=== PATIENT | female | born 1970 | race Caucasian/White ===

== ENCOUNTER 2022-10-05 10:36 | Emergency (ER) | payer OTHER ==
[2022-10-05 11:34] LABS: BASOPHILS # (AUTO) 0.1 10^3/uL (0.0-0.1); BASOPHILS % (AUTO) 0.6 %; EOSINOPHILS # (AUTO) 0.2 10^3/uL (0.0-0.7); EOSINOPHILS % (AUTO) 1.7 %; HCT - HEMATOCRIT 47.4 % (37.0-47.0); HGB - HEMOGLOBIN 14.9 g/dL (12.0-16.0); LYMPHOCYTES # (AUTO) 2.9 10^3/uL (1.5-3.5); LYMPHOCYTES % (AUTO) 29.5 %; MEAN CORPUSCULAR HEMOGLOBIN 29.7 pg (27.0-31.0); MEAN CORPUSCULAR HGB CONC 31.4 g/dL (32.0-36.0); MEAN CORPUSCULAR VOLUME 94.4 fL (81.0-99.0); MEAN PLATELET VOLUME 12.9 fL (7.9-10.8); MONOCYTES # (AUTO) 0.6 10^3/uL (0.0-1.0); MONOCYTES % (AUTO) 6.3 %; NEUTROPHILS % (AUTO) 61.4 %; PLT - PLATELET COUNT 163 10^3/uL (130-450); RED BLOOD COUNT 5.02 10^6/uL (4.20-5.40); RED CELL DISTRIBUTION WIDTH 13.8 % (12.0-15.0); WHITE BLOOD COUNT 9.8 x10^3/uL (4.8-10.8)
[2022-10-05 11:54] LABS: ALBUMIN 3.8 g/dL (3.2-5.5); ALBUMIN/GLOBULIN RATIO 1.3 (1.0-2.2); BILIRUBIN,TOTAL 1.4 mg/dL (0.2-1.0); CALCIUM 8.8 mg/dL (8.5-10.3); CREATININE 0.8 mg/dL (0.4-1.0); POTASSIUM 4.3 mmol/L (3.5-5.0); TOTAL PROTEIN 6.8 g/dL (6.7-8.2)
--- NOTE | 2022-10-05 11:57 | XRAY Report ---
PROCEDURE: Chest 1 View X-Ray INDICATIONS: Chest pain TECHNIQUE: One view of the chest was acquired. COMPARISON: None. FINDINGS: Surgical changes and devices: None. Lungs and pleura: No pleural effusions or pneumothorax. Lungs are clear. Mediastinum: Mediastinal contours appear normal. Heart size is enlarged. Bones and chest wall: No suspicious bony lesions. Overlying soft tissues appear unremarkable. IMPRESSION: No acute pulmonary process. Reviewed by: Nanci Rondon MD on 10/05/2022 11:56 AM [facility] Approved by: Nanci Rondon MD on 10/05/2022 11:56 AM [facility] Station ID: [id number]
--- NOTE | 2022-10-05 12:09 | ED Physician Documentation ---
History of Present Illness - Stated complaint Stated Complaint: SOA/CHEST PX - Chief complaint Chief Complaint: Cardiac - Additonal information Additional information: History obtained from patient. Reliable historian. 52-year-old female presents emergency department for evaluation of intermittent chest discomfort/pressure and palpitations. They began a number of weeks ago though got exceedingly worse yesterday evening about 7 PM. Patient is visiting the [place] as her osstuj-hv-qmq recently . + orthopnea. No unilateral leg swelling. She is obese but denies a history of hypertension or coronary artery disease. She takes Prozac only. No smoker. She was a heavy alcohol user but quit about 1 month ago. She is unsure of her return date to [place]. Review of Systems Constitutional: reports: Reviewed and negative Nose: reports: Reviewed and negative Throat: reports: Reviewed and negative Cardiac: reports: Chest pain / pressure, Palpitations. denies: Pedal edema, Calf pain Respiratory: reports: Dyspnea (orhtopnea). denies: Cough GI: reports: Abdominal Pain. denies: Nausea, Vomiting : reports: Reviewed and negative Skin: reports: Reviewed and negative PD PAST MEDICAL HISTORY - Present Medications Home Medications: Ambulatory Orders Medication Instructions Recorded Confirmed Fluoxetine HCl [Prozac] 20 mg PO DAILY 10/05/22 10/05/22 dilTIAZem HCL [Cardizem] 30 mg PO QID #120 tab 10/05/22 - Allergies Allergies/Adverse Reactions: Allergies Allergy/AdvReac Type Severity Reaction Status Date / Time No Known Drug Allergies Allergy Verified 10/05/22 11:18 PD ED PE NORMAL - General General: Alert and oriented X 3, No acute distress. No: Well developed/nourished (obese) - HEENT HEENT: PERRL - Cardiac Cardiac: No murmur. No: RRR (Irregularly irregular. A. 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 Eye Opening: Spontaneous Motor: Obeys Commands Verbal: Oriented GCS Score: 15 Results - Vitals Vitals: Vital Signs - 24 hr 10/05/22 10/05/2210/05/23 11:08 12:23 12:33 Temperature 36.6 C Heart Rate 142 H 131 H 122 H Respiratory 20 22 16 Rate Blood Pressure 107/79 127/95 H 101/68 O2 Saturation 100 98 99 Oxygen O2 Source Room air - EKG (time done) 1116 Rate: Rate (enter#) (142) Rhythm: Atrial fibrillation [place]: Anterior hemiblock Intervals: No: Normal ID, Prolonged QT QRS: Normal Ischemia: Non specific changes Compare to prior EKG: Old EKG unavailable Computer interpretation: Agree with computer - Labs Labs: Laboratory Tests 10/05/22 10/05/22 10/05/22 11:28 11:28 11:28 WBC 9.8 RBC 5.02 Hgb 14.9 Hct 47.4 H MCV 94.4 MCH 29.7 MCHC 31.4 L RDW 13.8 Plt Count 163 MPV 12.9 H Neut # (Auto) 6.0 Lymph # (Auto) 2.9 [place] # (Auto) 0.6 Eos # (Auto) 0.2 Baso # (Auto) 0.1 Absolute Nucleated RBC 0.00 Nucleated RBC % 0.0 Sodium 139 Potassium 4.3 Chloride 108 Carbon Dioxide 20 L Anion Gap 11.0 BUN 18 Creatinine 0.8 Estimated GFR (MDRD) 76 L Glucose 118 H Calcium 8.8 Total Bilirubin 1.4 H AST 20 ALT 20 Alkaline Phosphatase 75 Troponin I High Sens 11.5 B-Natriuretic Peptide Total Protein 6.8 Albumin 3.8 Globulin 3.0 Albumin/Globulin Ratio 1.3 Lipase 26 10/05/22 11:28 WBC RBC Hgb Hct MCV MCH MCHC RDW Plt Count MPV Neut # (Auto) Lymph # (Auto) [place] # (Auto) Eos # (Auto) Baso # (Auto) Absolute Nucleated RBC Nucleated RBC % Sodium Potassium Chloride Carbon Dioxide Anion Gap BUN Creatinine Estimated GFR (MDRD) Glucose Calcium Total Bilirubin AST ALT Alkaline Phosphatase Troponin I High Sens B-Natriuretic Peptide 676 H Total Protein Albumin Globulin Albumin/Globulin Ratio Lipase - Rads (name of study) cxr Radiology: Final report received (No acute cardiopulmonary process) PD Medical Decision Making - ED course Complexity details: reviewed results, re-evaluated patient, considered differential, d/w patient ED course: 52-year-old female presents emergency department for evaluation of intermittent palpitations over the last few weeks that became acutely worse and persistent yesterday evening about 7 PM. On presentation to the emergency department she is noted to be in atrial fib wit h RVR heart rate of 140 though normotensive. She is alert and otherwise well- appearing. She has no focal deficits neurologically. Once IV access was established she was given a dose of Cardizem which slowed her heart rate into the 120s but remained atrial fibrillation. A second 10 mg dose of Cardizem was also then administered which successfully slowed her heart rate into the 90s. She remained there for the better part of an hour. She was also given an oral dose of Cardizem prior to discharge as well as a loading dose of aspirin 325. I did check her chest x-ray and showed no findings of volume overload congestive heart failure or focal pneumonia/infiltrate or pleural effusion. CBC and electrolytes were otherwise unrevealing. According to her [id number] 2 score she is low risk for stroke/TIA earning a score of 1 only for her gender. Thus she will be discharged home with oral Cardizem for rate control initially 30 mg 4 times daily. She is encouraged to follow very closely with her primary care provider when she returns to the [facility] as she will need an urgent/emergent referral to cardiology. Emergent and urgent return precautions were discussed otherwise Departure - Departure Disposition: 01 Home, Self Care Clinical Impression: Atrial fibrillation Qualifiers: Atrial fibrillation type: unspecified Qualified Code(s): I48.91 - Unspecified atrial fibrillation Condition: Serious Record reviewed to determine appropriate education?: Yes Instructions: Atrial Fibrillation Dc Prescriptions: dilTIAZem HCL [Cardizem] 30 mg PO QID #120 tab Comments: Bethanie you came to the emergency department today because intermittently for a few weeks you have been having some shortness of air and palpitations. You were found to be in a heart rhythm called atrial fibrillation. This is erratic electrical ask activity in the upper chambers of the heart. This can cause you to have increased risk of stroke as well as developed heart failure if your rate is not controlled over time. Here in the emergency department your CBC, electrolytes and chest x-ray did not show any worrisome findings. We did give you 2 doses of medication called Cardizem which has slowed your heart rate to the 90s and low 110s which is appropriate at this time for discharge. In order to manage her rate over the next few days or week until you see your primary care doctor I would like you to take the Cardizem 4 times a day. It is important/critical that you follow closely with your primary care doctor because you should receive a referral to a cottrell blower for longer-term management and evaluation of your atrial fibrillation. We did give you a dose of aspirin today in the emergency department and I recommend that you begin taking an 81 mg aspirin daily. We did discuss that with atrial fibrillation you do have about a 1% risk of stroke over the next year. However this is considered lower risk and the recommendation would be not to start therapeutic anticoagulation Due to the risks associated with anticoagulation and bleeding. If you find that despite taking the Cardizem you are having a racing heart, have any fainting episodes develop chest pain or severe shortness of air you need to return immediately to the ER. Return sooner for any signs of stroke such as slurred speech, facial droop, focal weakness in the arms or legs. .
[2022-10-05] MEDS: diltiaZEM INJ 5 MG/ML VIAL IVP STA ×2 (12:25→12:44)
[2022-10-05] MEDS: ASPIRIN CHEW 81 MG TABLET PO STA (14:00)
[2022-10-05] MEDS: diltiaZEM 30 MG TABLET PO STA (14:01)
[2022-10-05 14:20] VITALS: BP 144/116
== END 2022-10-05 14:20 | disposition home or self-care (01) ==
LOC: ED 10:36
DX: I48.91 Unspecified atrial fibrillation (principal)
CPT/HCPCS: 36415; 71045; 80053; 83690; 83880; 84484; 85025; 93005; 96374; 99284; A9270

== ENCOUNTER 2023-11-27 11:53 | Emergency (ER) | payer SELFPAY ==
[2023-11-27 12:27] LABS: BASOPHILS # (AUTO) 0.1 10^3/uL (0.0-0.1); BASOPHILS % (AUTO) 0.9 %; EOSINOPHILS # (AUTO) 0.2 10^3/uL (0.0-0.7); EOSINOPHILS % (AUTO) 2.9 %; HGB - HEMOGLOBIN 12.4 g/dL (12.0-16.0); LYMPHOCYTES # (AUTO) 1.6 10^3/uL (1.5-3.5); LYMPHOCYTES % (AUTO) 23.6 %; MEAN CORPUSCULAR HGB CONC 29.5 g/dL (32.0-36.0); MEAN CORPUSCULAR VOLUME 94.8 fL (81.0-99.0); MEAN PLATELET VOLUME 12.8 fL (7.9-10.8); MONOCYTES # (AUTO) 0.6 10^3/uL (0.0-1.0); MONOCYTES % (AUTO) 9.4 %; NEUTROPHILS # (AUTO) 4.3 10^3/uL (1.5-6.6); NEUTROPHILS % (AUTO) 62.9 %; PLT - PLATELET COUNT 192 10^3/uL (130-450); RED BLOOD COUNT 4.43 10^6/uL (4.20-5.40); RED CELL DISTRIBUTION WIDTH 18.3 % (12.0-15.0); WHITE BLOOD COUNT 6.8 x10^3/uL (4.8-10.8)
--- NOTE | 2023-11-27 12:27 | ED Physician Documentation ---
History of Present Illness - Stated complaint Stated Complaint: SOB,LEG WOUND - Chief complaint Chief Complaint: Cardiac - History obtained from History obtained from: Patient - Additonal information Additional information: She has a history of A-fib but was lost to follow-up. Never seen a supervisor treating and pumping, never had an echo. She is in the process of moving up here and was on meds for rate control, but was lost to follow-up and has been off of meds for several months. She presents with progressive dyspnea, orthopnea, mild chest tightness but no chest pain per se. She also bumped her left sharpe on something 2 weeks ago when she developed a sore there that probably became infected last night. Denies fevers or chills. 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: Hysterectomy - Present Medications Home Medications: Ambulatory Orders Medication Instructions Recorded Confirmed Fluoxetine HCl [Prozac] 20 mg PO DAILY 10/05/22 11/27/23 Diltiazem HCl [Diltiazem 12Hr ER] 60 mg PO BID #60 cap 11/27/23 Furosemide [Lasix] 20 mg PO DAILY #7 tablet 11/27/23 HYDROcod/ACETAM 5/325 [[place] 5/325] 1 - 2 tab PO Q6H PRN #15 tablet 11/27/23 Mupirocin 2% Oint [Bactroban 2% 1 applic TOP BID #50 gm 11/27/23 Oint] Omeprazole Magnesium [Prilosec] 20 mg PO DAILY 11/27/23 11/27/23 Potassium Chloride 10 meq PO DAILY #7 tab 11/27/23 cephALEXin [Keflex] 500 mg PO Q6H #28 cap 11/27/23 - Allergies Allergies/Adverse Reactions: Allergies Allergy/AdvReac Type Severity Reaction Status Date / Time No Known Drug Allergies Allergy Verified 10/05/22 11:18 - Social History Does the pt smoke?: No Smoking Status: Never smoker Does the pt drink ETOH?: Yes Does the pt have substance abuse?: No - Immunizations Immunizations are current?: Yes PD ED PE NORMAL - Vitals Vital signs reviewed: Yes - General General: Alert and oriented X 3, No acute distress - Cardiac Cardiac: Other (Rapid and irregular without murmur) - Respiratory Respiratory: No respiratory distress, Clear bilaterally - Abdomen Abdomen: Non tender - Back Back: No CVA TTP, No spinal TTP - Derm Derm: Normal color, Warm and dry - Extremities Extremities: Other (There is a ulcer that is infected on the left sharpe measuring about 5 cm in diameter. A culture was obtained.) - Neuro Neuro: Alert and oriented X 3, Normal speech Results - Vitals Vitals: Vital Signs - 24 hr 11/27/23 11/27/23 11/27/23 11:58 12:34 12:40 Temperature 35.7 C L Heart Rate 146 H 143 H 125 H Respiratory 16 22 23 Rate Blood Pressure 104/61 154/130 H 102/65 O2 Saturation 100 98 97 11/27/23 11/27/23 11/27/23 12:41 12:45 13:04 Temperature Heart Rate 109 H 100 106 H Respiratory 26 H 16 17 Rate Blood Pressure 110/83 H 111/88 H 114/65 O2 Saturation 98 96 96 11/27/23 11/27/23 11/27/23 13:30 14:00 14:16 Temperature Heart Rate 103 H 115 H 102 H Respiratory 15 20 17 Rate Blood Pressure 116/85 H 117/84 H 120/79 O2 Saturation 97 96 97 Oxygen O2 Source Room air - EKG (time done) 1117 EKG releavant findings:: EKG personally interpreted by author of this note. Relevant findings are: Rate: Rate (enter#) (147) Rhythm: Atrial fibrillation Intervals: Other (lafb) QRS: Normal Ischemia: Normal ST segments - Labs Labs: Laboratory Tests 11/27/23 11/27/23 11/27/23 12:16 12:16 12:16 WBC 6.8 RBC 4.43 Hgb 12.4 Hct 42.0 MCV 94.8 MCH 28.0 MCHC 29.5 L RDW 18.3 H Plt Count 192 MPV 12.8 H Neut # (Auto) 4.3 Lymph # (Auto) 1.6 [facility] # (Auto) 0.6 Eos # (Auto) 0.2 Baso # (Auto) 0.1 Absolute Nucleated RBC 0.00 Nucleated RBC % 0.0 Sodium 138 Potassium 4.3 Chloride 106 Carbon Dioxide 23 Anion Gap 9.0 BUN 15 Creatinine 0.6 Estimated GFR (MDRD) 105 Glucose 108 H Calcium 9.6 Magnesium 1.7 Total Bilirubin 2.1 H AST 10 ALT 4 L Alkaline Phosphatase 109 Troponin I High Sens B-Natriuretic Peptide 861 H Total Protein 7.2 Albumin 4.0 Globulin 3.2 Albumin/Globulin Ratio 1.3 Lipase < 10 L TSH 4.58 11/27/23 12:16 WBC RBC Hgb Hct MCV MCH MCHC RDW Plt Count MPV Neut # (Auto) Lymph # (Auto) [facility] # (Auto) Eos # (Auto) Baso # (Auto) Absolute Nucleated RBC Nucleated RBC % Sodium Potassium Chloride Carbon Dioxide Anion Gap BUN Creatinine Estimated GFR (MDRD) Glucose Calcium Magnesium Total Bilirubin AST ALT Alkaline Phosphatase Troponin I High Sens 9.2 B-Natriuretic Peptide Total Protein Albumin Globulin Albumin/Globulin Ratio Lipase TSH - Rads (name of study) 1v cxr Relevant Findings:: Final report received, EMP independent interpretation of test PD Medical Decision Making - ED course ED course: 53-year-old woman who is lost to follow-up who has A-fib with RVR and some CHF on top of that with elevated BNP. Her ischemic markers are negative. She was rate controlled after 2 doses of IV diltiazem. A culture of the wound on her leg was done and she will probably in the long-term need wound care as it is fairly large. Otherwise CBC, CMP were unremarkable except for some elevated bilirubin likely due to hepatic congestion from her CHF. Departure - Departure Disposition: 01 Home, Self Care Clinical Impression: Congestive heart failure Qualifiers: Heart failure type: unspecified Heart failure chronicity: unspecified Qualified Code(s): I50.9 - Heart failure, unspecified Atrial fibrillation Qualifiers: Atrial fibrillation type: unspecified Qualified Code(s): I48.91 - Unspecified atrial fibrillation Infected traumatic leg ulcer Qualifiers: Laterality: left Non-pressure ulcer stage: with fat layer exposed Qualified Code(s): L97.922 - Non-pressure chronic ulcer of unspecified part of left lower leg with fat layer exposed; L08.9 - Local infection of the skin and subcutaneous tissue, unspecified Condition: Good Record reviewed to determine appropriate education?: Yes Instructions: Atrial Fibrillation Dc, Heart Failure Dc Prescriptions: Mupirocin 2% Oint [Bactroban 2% Oint] 1 applic TOP BID #50 gm Diltiazem HCl [Diltiazem 12Hr ER] 60 mg PO BID #60 cap cephALEXin [Keflex] 500 mg PO Q6H #28 cap Furosemide [Lasix] 20 mg PO DAILY #7 tablet HYDROcod/ACETAM 5/325 [[place] 5/325] 1 - 2 tab PO Q6H PRN #15 tablet PRN Reason: Pain Potassium Chloride 10 meq PO DAILY #7 tab Comments: I sent your prescriptions electronically to the [facility] in [place]. You can wash the wound briefly with soap and water and then apply the mupirocin ointment and then loose wrap. You should do this once a day. This coming week are [place] primary care clinic is on-call for unassigned ER follow-up patients, call [phone], call tomorrow for a follow-up appointment, let them know that you were in the emergency department. I would suggest referrals to both wound care and you will need an echocardiogram. We are only doing the diuretic for the first 7 days, hopefully if your rate stays controlled you will no longer need that. You are also on a potassium supplement when you are on the diuretic. We are performing a wound culture, the results should be done in 48-72 hours. If antibiotic change is necessary we will call you. Return if worse in the meantime, especially if you develop increased pain, fevers, cannot keep down the medication. Otherwise follow-up with your physician in approximately 2-3 days. I am prescribing a short course of narcotic pain medication for you. These are potentially dangerous and addictive medications that should be used carefully. These medications may constipate you. Take an wrpc-leh-drnlpht stool softener (docusate) twice daily with plenty of water while taking these medications. If you go 24 hours without a bowel movement, take sqiy-tmu-[id number] miralax, per package instructions. Do not drink or drive while taking these medications. If you received narcotic or sedating medications while in the emergency department, do not drive for 24 hours. Store this medication in a safe, secure place and out of reach of children. It is a violation of federal law to give or sell this medication to another person or to use in a manner other than prescribed. The ED will not refill narcotic prescriptions, including prescriptions lost or stolen. To dispose of unwanted medications: 1. [facility] provides a drop box for medication in pill form only (no liquids) 8:00 am to 4:30 p.m. Tuesday-Tuesday in the lobby of the [facility] [place], [address] Empty pills into ziplock bag before disposal. Call [phone] for information. 2.[employer] is a free service available to all [facility] [place] residents. Go to [email or web address] Note that many narcotic pain relievers also contain Tylenol/acetaminophen. Please ensure that your total dose of acetaminophen from all sources does not exceed 3 g (3000 mg) per day. Forms: PCP List Discharge Date/Time: 11/27/23 15:31
[2023-11-27] MEDS: diltiaZEM INJ 5 MG/ML VIAL IVP STA ×2 (12:34→14:10)
[2023-11-27 12:42] LABS: ALBUMIN/GLOBULIN RATIO 1.3 (1.0-2.2); ALKALINE PHOSPHATASE 109 IU/L (42-121); ALT ALANINE AMINOTRANSFERASE 4 IU/L (10-60); AST ASPARTATE AMINOTRANSFERASE 10 IU/L (10-42); BILIRUBIN,TOTAL 2.1 mg/dL (0.2-1.0); BUN - BLOOD UREA NITROGEN 15 mg/dL (6-20); CALCIUM 9.6 mg/dL (8.5-10.3); CARBON DIOXIDE - CO2 23 mmol/L (21-32); CHLORIDE 106 mmol/L (101-111); CREATININE 0.6 mg/dL (0.6-1.3); GFR - MDRD 105 (>89); GLUCOSE 108 mg/dL (74-104); MAGNESIUM 1.7 mg/dL (1.7-2.3); POTASSIUM 4.3 mmol/L (3.5-4.5); SODIUM 138 mmol/L (135-145); TOTAL PROTEIN 7.2 g/dL (6.4-8.9)
[2023-11-27 12:43] LABS: LIPASE < 10 U/L (11-82)
[2023-11-27 12:57] LABS: THYROID STIMULATING HORMONE 4.58 uIU/mL (0.34-5.60)
--- NOTE | 2023-11-27 13:05 | XRAY Report ---
PROCEDURE: Chest 1V INDICATIONS: dyspnea TECHNIQUE: One view of the chest was acquired. COMPARISON: 10/05/2022 FINDINGS: Surgical changes and devices: None. Lungs and pleura: No pleural effusions or pneumothorax.No focal infiltrates are seen. Mediastinum: Mediastinal contours appear normal. Heart size is at least moderately enlarged. Bones and chest wall: No suspicious bony lesions. Overlying soft tissues appear unremarkable. IMPRESSION: At least moderate cardiomegaly, with minimal interstitial prominence. Mild/early CHF is suspected. Reviewed by: Shan Martines MD on 11/27/2023 12:03 PM [facility] Approved by: Shan Martines MD on 11/27/2023 12:03 PM [facility] Station ID: [id number]
[2023-11-27] MEDS: HYDROmorphone 1 MG/ML CARPUJECT IVP STA (13:27)
[2023-11-27] MEDS: FUROSEMIDE 20 MG/2 ML VIAL IVP STA (14:08)
[2023-11-27 14:20] VITALS: BP 120/79; O2SAT 97
== END 2023-11-27 15:31 | disposition home or self-care (01) ==
LOC: ED 11:53
DX: L97.222 Non-pressure chronic ulcer of left calf with fat layer exposed (principal); L08.9 Local infection of the skin and subcutaneous tissue, unspecified; I48.91 Unspecified atrial fibrillation; I50.9 Heart failure, unspecified; Z79.899 Other long term (current) drug therapy
CPT/HCPCS: 36415; 71045; 80053; 83690; 83735; 83880; 84443; 84484; 85025; 93005; 96374; 96375; 96376; 99284; J1170

== ENCOUNTER 2024-06-13 08:47 | Outpatient (CLI) | payer MEDICAID ==
--- NOTE | 2024-06-15 16:06 | Mammography Report ---
BILATERAL DIGITAL SCREENING MAMMOGRAM 3D/2D: 06/13/2024 CLINICAL: Routine screening. Additional films were requested but not obtained. There are scattered areas of fibroglandular density (category b / 25%-50% glandular tissue). No significant masses, calcifications, or other findings are seen in either breast. IMPRESSION: NEGATIVE There is no mammographic evidence of malignancy. A 1 year screening mammogram is recommended. Based on the Tyrer Cuzick model (a risk assessment model) the patient's lifetime risk is 8.5% and her 10 year risk is 2.3%. According to the ACR, ACS, and NCCN guidelines, an annual breast MRI exam cory g with mammogram is recommended if the patient's lifetime risk is 20% or greater. This exam was interpreted at Station ID: [id number]. NOTE: For mammograms, a report in lay terms will be sent to the patient. Approximately 15% of breast malignancies will not be visualized mammographically. In the management of a palpable breast mass, a negative mammogram must not discourage biopsy of a clinically suspicious lesion. Electronically Signed By: Eagle clark/jaxon:06/15/2024 14:55:09 letter sent: No_Letter ACR BI-RADS Category 1: Negative PARENCHYMAL PATTERN: (A) - The breast(s) demonstrate(s) scattered fibroglandular densities. BI-RADS CATEGORY: (1) - 1 RECOMMENDATION: (ANNUAL) - Recommend routine annual screening mammography. [id number] 1 year screening LATERALITY: (B)
== END 2024-06-13 08:48 | disposition home or self-care (01) ==
LOC: DI.S 08:47
PROVIDERS: ATTEND Nurse Practitioner Acute Care
DX: Z12.31 Encounter for screening mammogram for malignant neoplasm of breast (principal)

== ENCOUNTER 2024-06-13 09:15 | Outpatient (CLI) | payer MEDICAID ==
[2024-06-13 14:46] LABS: BASOPHILS # (AUTO) 0.1 10^3/uL (0.0-0.1); BASOPHILS % (AUTO) 0.8 %; EOSINOPHILS # (AUTO) 0.5 10^3/uL (0.0-0.7); EOSINOPHILS % (AUTO) 5.5 %; HCT - HEMATOCRIT 44.6 % (37.0-47.0); HGB - HEMOGLOBIN 14.7 g/dL (12.0-16.0); LYMPHOCYTES # (AUTO) 2.9 10^3/uL (1.5-3.5); LYMPHOCYTES % (AUTO) 35.6 %; MEAN CORPUSCULAR HEMOGLOBIN 32.4 pg (27.0-31.0); MEAN CORPUSCULAR VOLUME 98.2 fL (81.0-99.0); MEAN PLATELET VOLUME 12.3 fL (7.9-10.8); MONOCYTES # (AUTO) 0.5 10^3/uL (0.0-1.0); MONOCYTES % (AUTO) 6.6 %; NEUTROPHILS # (AUTO) 4.2 10^3/uL (1.5-6.6); NEUTROPHILS % (AUTO) 50.8 %; PLT - PLATELET COUNT 162 10^3/uL (130-450); RED BLOOD COUNT 4.54 10^6/uL (4.20-5.40); WHITE BLOOD COUNT 8.2 x10^3/uL (4.8-10.8)
[2024-06-13 15:27] LABS: ALBUMIN 4.2 g/dL (3.2-5.5); ALBUMIN/GLOBULIN RATIO 1.5 (1.0-2.2); ALKALINE PHOSPHATASE 101 IU/L (42-121); ALT ALANINE AMINOTRANSFERASE 28 IU/L (10-60); AST ASPARTATE AMINOTRANSFERASE 26 IU/L (10-42); BILIRUBIN,TOTAL 0.9 mg/dL (0.2-1.0); BUN - BLOOD UREA NITROGEN 21 mg/dL (6-20); CALCIUM 9.5 mg/dL (8.5-10.3); CARBON DIOXIDE - CO2 24 mmol/L (21-32); CHLORIDE 107 mmol/L (101-111); CHOL/HDL RATIO 3.3 (<4.4); CHOLESTEROL 182 mg/dL; CREATININE 0.6 mg/dL (0.6-1.3); GFR - MDRD 105 (>89); GLUCOSE 115 mg/dL (74-104); HDL CHOLESTEROL 56 mg/dL; LDL CHOLESTEROL,CALCULATED 107 mg/dL; LDL/HDL RATIO 1.9 (<4.4); POTASSIUM 4.1 mmol/L (3.5-4.5); SODIUM 138 mmol/L (135-145); TRIGLYCERIDES 93 mg/dL; VLDL CHOLESTEROL 19 mg/dL
[2024-06-13 15:36] LABS: THYROID STIMULATING HORMONE 1.66 uIU/mL (0.34-5.60)
[2024-06-13 20:47] LABS: ESTIMATED AVERAGE GLUCOSE 103 mg/dL (70-100); HEMOGLOBIN A1c% 5.2 % (4.27-6.07)
== END 2024-06-13 09:16 | disposition home or self-care (01) ==
LOC: LAB.S 09:15
PROVIDERS: ATTEND Nurse Practitioner Acute Care
DX: Z13.228 Encounter for screening for other metabolic disorders (principal); Z13.220 Encounter for screening for lipoid disorders; Z13.1 Encounter for screening for diabetes mellitus; Z13.29 Encounter for screening for other suspected endocrine disorder; Z13.0 Encounter for screening for diseases of the blood and blood-forming organs and certain disorders involving the immune mechanism
CPT/HCPCS: 36415; 80053; 80061; 83036; 83721; 84443; 85025